=== PATIENT | male | born 1980 | race Hispanic/Latino ===

== ENCOUNTER 2022-01-29 07:37 | Emergency (ER) | payer BC ==
[2022-01-29] MEDS ORDERED: Albuterol 200 PUFF (6.7GM INHALER) ONE (08:34)
[2022-01-29 09:51] LABS: SARS-CoV-2 NAA Rapid Test Not Detected (NotDetected)
== END 2022-01-29 08:55 | disposition home or self-care (01) ==
LOC: ERS 07:37
DX: J06.9 Acute upper respiratory infection, unspecified (principal); Z20.822 Contact with and (suspected) exposure to COVID-19
CPT/HCPCS: 71046; 94664